=== PATIENT | male | born 1990 | race Caucasian/White ===

== ENCOUNTER 2025-06-01 08:21 | Emergency (ER) | payer BC ==
[~2025-06-01] VITALS: Ht 182.9 cm; Wt 97.3 kg
[2025-06-01 08:23] VITALS: BP 144/92; PULSE 77; RESP 16; TEMP 98.1; O2SAT 97
--- NOTE | 2025-06-01 08:48 | RADIOLOGY REPORT ---
CLINICAL INFORMATION: HAND PAIN. TECHNIQUE: 3 views of the right hand were obtained. COMPARISON: None FINDINGS: No acute fracture or dislocation. The patient's ring partially obscures portions of the proximal phalanx of the 5th digit. Adjacent soft tissues are unremarkable. IMPRESSION: No evidence of acute bony abnormality.
--- NOTE | 2025-06-01 08:49 | RADIOLOGY REPORT ---
CLINICAL INFORMATION: HAND PAIN. TECHNIQUE: 3 views of the right wrist were obtained. COMPARISON: None FINDINGS: No acute fracture or dislocation. No significant arthropathy. Adjacent soft tissues are unremarkable. IMPRESSION: No evidence of acute bony abnormality.
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
== END 2025-06-01 09:11 | disposition home or self-care (01) ==
LOC: ER 08:23
DX: M79.641 Pain in right hand (principal)
CPT/HCPCS: 73110; 73130; 99284